=== PATIENT | female | born 2000 ===

== ENCOUNTER 2021-07-02 23:33 | Inpatient (IN) | payer MEDICAID ==
[2021-07-03] MEDS ORDERED: Sodium Chloride 0.9% 10 ML Syringe FLUSH PRN ×2 (00:11→00:34)
[2021-07-03] MEDS ORDERED: Sodium Chloride 0.9% 20 ML SDV IV PRN ×2 (00:11→00:34)
[2021-07-03] MEDS ORDERED: Sodium Chloride 0.9% 2.5 ML Syringe FLUSH PRN ×2 (00:11→00:34)
[2021-07-03] MEDS: Lactated Ringers 1,000 ML IV SCH ×2 (00:30→08:21)
[2021-07-03] MEDS ORDERED: Nalbuphine 10 MG/1 ML Vial IVPUSH PRN (00:34)
[2021-07-03] MEDS ORDERED: Lidocaine 1% 50 ML MDV INJECT PRN (00:34)
[2021-07-03] MEDS ORDERED: Butorphanol 1 MG/ML SDV IVPUSH PRN (00:34)
[2021-07-03] MEDS ORDERED: Carboprost Tromethamine 250 MCG/1 ML Amp IM PRN (00:34)
[2021-07-03] MEDS ORDERED: Water For Irrigation,Sterile 1,000 ML Container IRR PRN (00:34)
[2021-07-03] MEDS ORDERED: Misoprostol 200 MCG Tab PO PRN (00:34)
[2021-07-03] MEDS ORDERED: Tranexamic Acid 1,000 MG in Sodium Chloride 0.9% 100 ML IV PRN (00:34)
[2021-07-03] MEDS ORDERED: Methylergonovine 0.2 MG/1 ML Amp IM PRN (00:34)
[2021-07-03] MEDS ORDERED: Oxytocin/0.9 % Sodium Chloride 30 UNIT/500 ML BAG IV SCH (00:45)
[2021-07-03 01:03] LABS: BLOOD UREA NITROGEN,BUN 5 mg/dL (7.0-18.0); CHLORIDE,CL 103 mmol/L (98-107); GLUCOSE RANDOM 92 mg/dL (74-106); POTASSIUM,K 4.4 mmol/L (3.5-5.1); SODIUM,NA 137 mmol/L (136-145)
[2021-07-03] MEDS ORDERED: Ropivacaine HCl/PF 100 ML ONE (01:52)
[2021-07-03] MEDS ORDERED: ePHEDrine 50 MG/ML SDV IVPUSH PRN (02:46)
--- NOTE | 2021-07-03 02:48 | PCM.PREANE ---
Preanesthetic Assessment - Procedure Proposed Procedure: Labor Epidural - Anesthesia/Transfusion/Family Hx Anesthesia History: No Prior Anesthesia Family History of Anesthesia Reaction: No Transfusion History: No Prior Transfusion(s) Intubation History: Unknown - Review of Systems General: No Symptoms Pulmonary: Other (Asthma) Cardiovascular: No Symptoms Gastrointestinal: Other (GERD) Neurological: No Symptoms Other: Reports: None - Physical Assessment NPO Status Date: 07/03/21 NPO Status Time: 01:30 (Not NPO) Height: 1.59 m Weight: 80.014 kg ASA Class: 2 Mental Status: Alert & Oriented x3 Airway Class: Mallampati = 2 Dentition: Reports: Normal Dentition Thyro-Mental Finger Breadths: 3 Mouth Opening Finger Breadths: 3 ROM/Head Extension: Full Lungs: Clear to Auscultation, Normal Respiratory Effort Cardiovascular: Regular Rate, Regular Rhythm - Lab Values: Laboratory Last Values WBC 16.17 K/uL (4.0-11.0) H 07/03/21 00:28 RBC 4.30 M/uL (4.30-5.90) 07/03/21 00:28 Hgb 12.1 g/dL (12.0-16.0) 07/03/21 00:28 Hct 36.4 % (36.0-46.0) 07/03/21 00:28 MCV 84.7 fL (80.0-98.0) 07/03/21 00:28 MCH 28.1 pg (27.0-32.0) 07/03/21 00:28 MCHC 33.2 g/dL (31.0-37.0) 07/03/21 00:28 RDW Std Deviation 40.9 fl (28.0-62.0) 07/03/21 00:28 RDW Coeff of Jose 14 % (11.0-15.0) 07/03/21 00:28 Plt Count 320 K/uL (150-400) 07/03/21 00:28 MPV 9.70 fL (7.40-12.00) 07/03/21 00:28 Sodium 137 mmol/L (136-145) 07/03/21 00:24 Potassium 4.4 mmol/L (3.5-5.1) 07/03/21 00:24 Chloride 103 mmol/L (98-107) 07/03/21 00:24 Carbon Dioxide 20.0 mmol/L (21.0-32.0) L 07/03/21 00:24 BUN 5 mg/dL (7.0-18.0) L 07/03/21 00:24 Creatinine 0.6 mg/dL (0.6-1.0) 07/03/21 00:24 Est Cr Clr Drug Dosing 120.00 mL/min 07/03/21 00:24 Estimated GFR (MDRD) > 60.0 ml/min 07/03/21 00:24 Glucose 92 mg/dL (74-106) 07/03/21 00:24 Uric Acid 3.9 mg/dL (2.6-7.2) 07/03/21 00:24 Calcium 8.9 mg/dL (8.5-10.1) 07/03/21 00:24 Total Bilirubin 0.2 mg/dL (0.2-1.0) 07/03/21 00:24 AST 13 IU/L (15-37) L 07/03/21 00:24 ALT 22 IU/L (14-63) 07/03/21 00:24 Alkaline Phosphatase 149 U/L (46-116) H 07/03/21 00:24 Total Protein 6.8 g/dL (6.4-8.2) 07/03/21 00:24 Albumin 2.9 g/dL (3.4-5.0) L 07/03/21 00:24 Globulin 3.9 g/dL (2.6-4.0) 07/03/21 00:24 Albumin/Globulin Ratio 0.7 (0.9-1.6) L 07/03/21 00:24 Urine Color YELLOW 07/03/21 00:15 Urine Appearance HAZY 07/03/21 00:15 Urine pH 7.0 (5.0-8.0) 07/03/21 00:15 Ur Specific [place] <= 1.005 (1.001-1.035) 07/03/21 00:15 Urine Protein NEGATIVE mg/dL (NEGATIVE) 07/03/21 00:15 Urine Glucose (UA) NEGATIVE mg/dL (NEGATIVE) 07/03/21 00:15 Urine Ketones NEGATIVE mg/dL (NEGATIVE) 07/03/21 00:15 Urine Occult Blood LARGE (NEGATIVE) H 07/03/21 00:15 Urine Nitrite NEGATIVE (NEGATIVE) 07/03/21 00:15 Urine Bilirubin NEGATIVE (NEGATIVE) 07/03/21 00:15 Urine Urobilinogen 0.2 EU/dL (<2.0) 07/03/21 00:15 Ur Leukocyte Esterase TRACE (NEGATIVE) H 07/03/21 00:15 Urine RBC 1-4 (0-2/HPF) 07/03/21 00:15 Urine WBC 0-3 (0-5/HPF) 07/03/21 00:15 Ur Epithelial Cells OCCASIONAL (NONE-FEW) 07/03/21 00:15 Urine Bacteria FEW (NEGATIVE) 07/03/21 00:15 Membrane Rupture POSITIVE 07/02/21 00:00 SARS-CoV-2 RNA (AYLA) NEGATIVE (NEGATIVE) 07/03/21 00:25 Blood Type O POSITIVE 07/03/21 00:24 Antibody Screen NEGATIVE 07/03/21 00:24 - Allergies Allergies/Adverse Reactions: Allergies Allergy/AdvReac Type Severity Reaction Status Date / Time diphenhydramine Allergy Other Verified 07/02/21 23:55 [From Benadryl] Latex, Natural Rubber Allergy Rash Verified 07/02/21 23:55 nitrofurantoin Allergy Airway Verified 07/02/21 23:55 [From Macrobid] Tightness - Blood Blood Available: Yes Product(s) Available: PRBC (Type and screen) - Anesthesia Plan Pre-Op Medication Ordered: None - Acknowledgements Anesthesia Type Planned: Epidural Pt an Appropriate Candidate for the Planned Anesthesia: Yes Alternatives and Risks of Anesthesia Discussed w Pt/Guardian: Yes Pt/Guardian Understands and Agrees with Anesthesia Plan: Yes PreAnesthesia Questionnaire Respiratory History: Reports: Asthma - HOME MEDS Home Medications: Home Meds Albuterol [Proventil HFA] 2 puff INH Q4H PRN 07/07/20 [History] - CURRENT (IN HOUSE) MEDS Current Meds: Current Medications Butorphanol Tartrate (Butorphanol 1 Mg/Ml Sdv) 1 mg IVPUSH Q1H PRN PRN Reason: Pain (severe 7-10) Last Admin: 07/03/21 00:50 Dose: 1 mg Documented by: Carboprost Tromethamine (Carboprost Tromethamine 250 Mcg/1 Ml Amp) 250 mcg IM ASDIRECTED PRN PRN Reason: Post Hemorrhage Lactated Ringer's (Ringers, Lactated) 1,000 mls @ 150 mls/hr IV ASDIRECTED [facility] Last Admin: 07/03/21 00:30 Dose: 999 mls/hr Documented by: Oxytocin/Sodium Chloride (Oxytocin 30 Unit In Ns 0.9% 500 Ml Premix) 30 unit in 500 mls @ 500 mls/hr IV TITRATE [facility] Tranexamic Acid 1,000 mg/ (Sodium Chloride) 110 mls @ 660 mls/hr IV ONETIME PRN PRN Reason: Bleeding Lidocaine HCl (Lidocaine 1% 50 Ml Mdv) 50 ml INJECT ONETIME PRN PRN Reason: Laceration repair Methylergonovine Maleate (Methylergonovine 0.2 Mg/1 Ml Amp) 0.2 mg IM ASDIRECTED PRN PRN Reason: Post Hemorrhage Misoprostol (Misoprostol 200 Mcg Tab) 200 mcg PO ONETIME PRN PRN Reason: Post Hemorrhage Nalbuphine HCl (Nalbuphine 10 Mg/1 Ml Vial) 10 mg IVPUSH Q1H PRN PRN Reason: Pain (severe 7-10) Sodium Chloride (Sodium Chloride 0.9% 10 Ml Syringe) 10 ml FLUSH ASDIRECTED PRN PRN Reason: Keep Vein Open Sodium Chloride (Sodium Chloride 0.9% 2.5 Ml Syringe) 2.5 ml FLUSH ASDIRECTED PRN PRN Reason: Keep Vein Open Sodium Chloride (Sodium Chloride 0.9% 20 Ml Sdv) 10 ml IV ASDIRECTED PRN PRN Reason: IV Use Sodium Chloride (Sodium Chloride 0.9% 10 Ml Syringe) 10 ml FLUSH ASDIRECTED PRN PRN Reason: Keep Vein Open Sodium Chloride (Sodium Chloride 0.9% 2.5 Ml Syringe) 2.5 ml FLUSH ASDIRECTED PRN PRN Reason: Keep Vein Open Sodium Chloride (Sodium Chloride 0.9% 20 Ml Sdv) 10 ml IV ASDIRECTED PRN PRN Reason: IV Use Sterile Water (Water For Irrigation,Sterile 1,000 Ml Container) 1,000 ml IRR ASDIRECTED PRN PRN Reason: delivery Discontinued Medications Ropivacaine (Naropin 0.2%) Confirm Administered Dose 100 mls @ as directed .ROUTE .[facility] Stop: 07/03/21 01:53
--- NOTE | 2021-07-03 02:53 | PCM.POSTAN ---
POST ANESTHESIA ASSESSMENT - MENTAL STATUS Mental Status: Alert, Oriented - RESPIRATORY Respiratory Status: Respiratory Rate WNL, Airway Patent, O2 Saturation Stable - CARDIOVASCULAR CV Status: Pulse Rate WNL, Blood Pressure Stable - GASTROINTESTINAL GI Status: No Symptoms - POST OP HYDRATION Hydration Status: Adequate & Stable - OBSERVATIONS Free Text/Narrative:: pt rates pain 2-3/10 and block at T6
--- NOTE | 2021-07-03 02:53 | PCM.SN.2 ---
- Pre-Procedure Checklist Attending Provider Aware: Yes Chart Reviewed: Yes Consent Signed: Yes Labs Reviewed: Yes VS/FHR Reviewed: Yes Patient Identification Confirmation Method: Reports: Chart Visual, Verbal Patient Pt an Appropriate Candidate for the Planned Anesthesia: Yes Alternatives and Risks of Anesthesia Discussed w Pt/Guardian: Yes - Procedure Procedure Start Date: 07/03/21 Procedure Start Time: 01:[address]: Reports: Blood Pressure, Heart Rate, SPO2 Functional IV: Yes Bolus Infused (fluid type and amount): 1000 ml LR Safety Measures: Reports: Patient Identified, Procedure Verified, Site Verified, Procedure Time Out Patient Position: Reports: Sitting Prep: Reports: Betadine x3 Local Anesthetic: Reports: Intradermal Wheal w Lidocaine 1% (3 ml) Regional Placement Level: Reports: L3-4 Needle: Reports: 17 g Touhy Approach: Reports: Midline Technique: Reports: SELINA Glass Syringe SELINA Needle Depth (cm): 7 cm Parasthesia: Reports: None Fluid Obtained: Reports: None Catheter Depth at Skin (cm): 15 cm Test Dose Time: 01:48 Test Dose Medication: Reports: Lidocaine 1.5% w Epinephrine 1:200,000 (5 ml) Test Dose Response: Reports: Negative Loading Dose Time: 01:57 (7 ml followed by 6 ml 15 min later) Loading Dose Medication: Ropivacaine 0.2% Loading Dose Patient Position: Supine with left tilt on second bolus Continuous Infusion Start Time: 01:58 Continuous Infusion Medication: Ropivacaine 0.2% Continuous Infusion Rate: 12 Continuous Infusion PCS Bolus Option: 4 Continuous Infusion Lockout Dose (cc/hr): 15 (min lockout) Patient Position Post Placement: Reports: Supine, Supline/KIMBERLY Post-procedure Pain Level: See post note Level Achieved: See post note VS and FHR Monitored in Unit Post Placement: Yes Procedure End Date: 07/03/21 Procedure End Time: 02:30 Procedure Comment: Sterile Technique maintained throughout.
[2021-07-03] MEDS ORDERED: Ropivacaine HCl/PF 200 MG in Premix Bag 1 BAG EPIDUR SCH (03:00)
--- NOTE | 2021-07-03 03:07 | PCM.SN.2 ---
- Free Text/Narrative Note: Patient complains of mild left him pain. Cont rate increased to 14 and bolus increased to 6.
[2021-07-03] MEDS: Albuterol 8 GM Inhaler INH PRN ×3 (08:33→22:27)
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
[2021-07-03] MEDS ORDERED: Acetaminophen 500 MG Tab PO PRN ×2 (09:47)
[2021-07-03] MEDS ORDERED: oxyCODONE 5 MG Tab PO PRN (09:47)
[2021-07-03] MEDS ORDERED: Ibuprofen 400 MG Tab PO PRN (09:47)
[2021-07-03] MEDS ORDERED: Bisacodyl 10 MG Supp RECTAL PRN (09:47)
[2021-07-03] MEDS ORDERED: Lanolin 100% Cream 7 GM Tube TOP PRN (09:47)
[2021-07-03] MEDS ORDERED: Witch Hazel Medicated Pads 40/Jar TOP PRN (09:47)
[2021-07-03] MEDS ORDERED: Benzocaine/Menthol 20%-0.5% Spray 78 GM Cannister TOP PRN (09:47)
[2021-07-03] MEDS ORDERED: Docusate Sodium 100 MG Cap PO PRN (09:47)
[2021-07-03] MEDS ORDERED: Oxytocin 10 Units/1 ML SDV IM ONE (11:20)
[2021-07-03] MEDS: Ibuprofen 800 MG Tab PO PRN ×2 (13:30→20:41)
--- NOTE | 2021-07-03 15:24 | OR ---
SURGEON: Johnny Chambers MD DATE OF PROCEDURE: 07/03/2021 Delivery Note Ms. Rosales is a 20-year-old patient, primigravida. She had her care by Dr. Aguilar in [place], [place]. However, she started having labor, and she had rupture of the membrane which is confirmed. She was closer at this time to our facility, so she came here. At the time of the admission, she was 4 cm, complete, vertex, and with spontaneous rupture of membrane is confirmed and contraction every 3 to 4 minutes. The patient admitted to the hospital. We will obtain her record from [facility]. Her care was unremarkable and the patient was supposed to be scheduled for induction next Sunday. However, the patient continued to progress. She had epidural anesthesia for labor analgesia and she progressed like primigravida and she became complete-complete around 10 o'clock in the morning of July 03, and then after pushing for an hour and 25 minutes, she was able to accomplish normal spontaneous vaginal delivery of a female fetus, cried immediately. score was 8 and 9. The placenta delivered spontaneous, complete, and intact. There was no perineal, labial, or vaginal laceration. Estimated blood loss is 250 to 300 mL. heart rate was category 1 through the entire process of labor. There was no complication in the labor and delivery process of this patient. ROSE / OPHELIA /[id number]
[2021-07-04] MEDS: Ibuprofen 800 MG Tab PO PRN ×2 (02:35→13:50)
[2021-07-04] MEDS: Albuterol 8 GM Inhaler INH PRN (11:12)
--- NOTE | 2021-07-04 13:32 | PCM.DCSUM1 ---
Discharge Summary - Hospital Course Diagnosis: Stroke: No - Discharge Data Discharge Date: 07/04/21 Discharge Disposition: Home, Self-Care 01 Condition: Good - Referral to Home Health Primary Care Physician: PCP None - Patient Instructions Diet: Usual Diet as Tolerated Activity: As Tolerated Driving: Do Not Drive Showering/Bathing: May Shower - Discharge Plan Home Medications: Home Meds Albuterol [Proventil HFA] 2 puff INH Q4H PRN 07/07/20 [History] Patient Handouts: Baby Blues, Breast Pumping Tips, [id number], Care After Vaginal Delivery Referrals: [facility] [Ordering Only Provider] - Johnny Chambers MD [Physician] - 08/15/21 10:45 am (Please arrive 15 minutes early and have ID and insurance cards. Masks are required.) - Discharge Summary/Plan Comment DC Time >30 min.: Yes Total # of Minutes for Discharge Time: 30 - General Info Date of Service: 07/04/21 Functional Status: Reports: Pain Controlled - Review of Systems General: Reports: No Symptoms HEENT: Reports: No Symptoms Pulmonary: Reports: No Symptoms Cardiovascular: Reports: No Symptoms Gastrointestinal: Reports: No Symptoms Genitourinary: Reports: No Symptoms Musculoskeletal: Reports: No Symptoms Skin: Reports: No Symptoms Neurological: Reports: No Symptoms Psychiatric: Reports: No Symptoms - Patient Data Vitals - Most Recent: Last Vital Signs Temp 36.0 C L 07/04/21 08:18 Pulse 85 07/04/21 08:18 Resp 17 07/04/21 08:18 BP 100/65 07/04/21 08:18 Pulse Ox 97 07/04/21 08:18 Weight - Most Recent: 80.014 kg Lab Results - Last 24 hrs: Laboratory Results - last 24 hr 07/04/21 Range/Units 06:04 Hgb 11.1 L (12.0-16.0) g/dL Hct 33.7 L (36.0-46.0) % Med Orders - Current: Current Medications Acetaminophen (Acetaminophen 500 Mg Tab) 500 mg PO Q4H PRN PRN Reason: Pain (mild 1-3) Acetaminophen (Acetaminophen 500 Mg Tab) 1,000 mg PO Q4H PRN PRN Reason: Pain (mild 1-3) Albuterol (Albuterol 8 Gm Inhaler) 0 gm INH Q4H PRN PRN Reason: Chest Pain Last Admin: 07/04/21 11:12 Dose: 8 gm Documented by: Benzocaine/Menthol (Benzocaine/Menthol 20%-0.5% [place] 78 Gm Cannister) 78 gm TOP ASDIRECTED PRN PRN Reason: Perineal Comfort Measure Last Admin: 07/03/21 13:29 Dose: 78 gm Documented by: Bisacodyl (Bisacodyl 10 Mg Supp) 10 mg RECTAL ONETIME PRN PRN Reason: Constipation Butorphanol Tartrate (Butorphanol 1 Mg/Ml Sdv) 1 mg IVPUSH Q1H PRN PRN Reason: Pain (severe 7-10) Last Admin: 07/03/21 00:50 Dose: 1 mg Documented by: Carboprost Tromethamine (Carboprost Tromethamine 250 Mcg/1 Ml Amp) 250 mcg IM ASDIRECTED PRN PRN Reason: Post Hemorrhage Docusate Sodium (Docusate Sodium 100 Mg Cap) 100 mg PO Q12H PRN PRN Reason: Constipation Emollient Ointment (Lanolin 100% Cream 7 Gm Tube) 0 gm TOP ASDIRECTED PRN PRN Reason: Sore Nipples Last Admin: 07/03/21 13:30 Dose: 7 gm Documented by: Ephedrine Sulfate (Ephedrine 50 Mg/Ml Sdv) 10 mg IVPUSH Q1M PRN PRN Reason: Hypotension Lactated Ringer's (Ringers, Lactated) 1,000 mls @ 150 mls/hr IV ASDIRECTED [facility] Last Admin: 07/03/21 08:21 Dose: 150 mls/hr Documented by: Oxytocin/Sodium Chloride (Oxytocin 30 Unit In Ns 0.9% 500 Ml Premix) 30 unit in 500 mls @ 500 mls/hr IV TITRATE [facility] Last Admin: 07/03/21 11:41 Dose: 500 mls/hr Documented by: Tranexamic Acid 1,000 mg/ (Sodium Chloride) 110 mls @ 660 mls/hr IV ONETIME PRN PRN Reason: Bleeding Ropivacaine 200 mg/ Premix 100 mls @ 0 mls/hr EPIDUR ASDIRECTED [facility] Ibuprofen (Ibuprofen 400 Mg Tab) 400 mg PO Q4H PRN PRN Reason: Pain (mild 1-3) Ibuprofen (Ibuprofen 800 Mg Tab) 800 mg PO Q6H PRN PRN Reason: Cramping Last Admin: 07/04/21 02:35 Dose: 800 mg Documented by: Lidocaine HCl (Lidocaine 1% 50 Ml Mdv) 50 ml INJECT ONETIME PRN PRN Reason: Laceration repair Methylergonovine Maleate (Methylergonovine 0.2 Mg/1 Ml Amp) 0.2 mg IM ASDIRECTED PRN PRN Reason: Post Hemorrhage Miscellaneous Medication (Phenylephrine Hcl In 0.9% Nacl 1 Mg/10 Ml Syringe) 0.1 mg IVPUSH Q1M PRN PRN Reason: Hypotension Misoprostol (Misoprostol 200 Mcg Tab) 200 mcg PO ONETIME PRN PRN Reason: Post Hemorrhage Nalbuphine HCl (Nalbuphine 10 Mg/1 Ml Vial) 10 mg IVPUSH Q1H PRN PRN Reason: Pain (severe 7-10) Oxycodone HCl (Oxycodone 5 Mg Tab) 5 mg PO Q2H PRN PRN Reason: Pain (severe 7-10) Sodium Chloride (Sodium Chloride 0.9% 10 Ml Syringe) 10 ml FLUSH ASDIRECTED PRN PRN Reason: Keep Vein Open Sodium Chloride (Sodium Chloride 0.9% 2.5 Ml Syringe) 2.5 ml FLUSH ASDIRECTED PRN PRN Reason: Keep Vein Open Sodium Chloride (Sodium Chloride 0.9% 20 Ml Sdv) 10 ml IV ASDIRECTED PRN PRN Reason: IV Use Sodium Chloride (Sodium Chloride 0.9% 10 Ml Syringe) 10 ml FLUSH ASDIRECTED PRN PRN Reason: Keep Vein Open Sodium Chloride (Sodium Chloride 0.9% 2.5 Ml Syringe) 2.5 ml FLUSH ASDIRECTED PRN PRN Reason: Keep Vein Open Sodium Chloride (Sodium Chloride 0.9% 20 Ml Sdv) 10 ml IV ASDIRECTED PRN PRN Reason: IV Use Sterile Water (Water For Irrigation,Sterile 1,000 Ml Container) 1,000 ml IRR ASDIRECTED PRN PRN Reason: delivery Witch Luciana (Witch Luciana Medicated Pads 40/Jar) 1 pad TOP ASDIRECTED PRN PRN Reason: comfort care Last Admin: 07/03/21 13:29 Dose: 1 pad Documented by: Discontinued Medications Ropivacaine (Naropin 0.2%) Confirm Administered Dose 100 mls @ as directed .ROUTE .STK-MED ONE Stop: 07/03/21 01:53 Last Admin: 07/03/21 07:59 Dose: 14 mls/hr Documented by: Oxytocin (Oxytocin 10 Units/1 Ml Sdv) 10 unit IM ONETIME ONE Stop: 07/03/21 11:21 Last Admin: 07/03/21 11:25 Dose: 10 unit Documented by: - Exam General: Reports: Alert, Oriented HEENT: Reports: Pupils Equal, Pupils Reactive, EOMI, Mucous Membr. Moist/[place] Neck: Reports: Supple Lungs: Reports: Clear to Auscultation, Normal Respiratory Effort Cardiovascular: Reports: Regular Rate, Regular Rhythm GI/Abdominal Exam: Normal Bowel Sounds, Soft, Non-Tender, No Organomegaly, No Distention, No Abnormal Bruit, No Mass, Pelvis Stable (Female) Exam: Normal External Exam, Normal Speculum Exam, Normal Bimanual Exam Rectal (Female) Exam: Normal Exam, Normal Rectal Tone Back Exam: Reports: Normal Inspection, Full Range of Motion Extremities: Normal Inspection, Normal Range of Motion, Non-Tender, No Pedal Edema, Normal Capillary Refill Skin: Reports: Warm, Dry, Intact Wound/Incisions: Reports: Healing Well Neurological: Reports: No New Focal Deficit Psy/Mental Status: Reports: Alert, Normal Affect, Normal Mood
--- NOTE | 2021-07-05 09:43 | PCM48HPAN ---
Post Anesthesia Note - EVALUATION WITHIN 48HRS OF ANESTHETIC Vital Signs in Normal Range: Yes Patient Participated in Evaluation: Yes Respiratory Function Stable: Yes Airway Patent: Yes Cardiovascular Function Stable: Yes Hydration Status Stable: Yes Pain Control Satisfactory: Yes Nausea and Vomiting Control Satisfactory: Yes Mental Status Recovered: Yes Vital Signs: Last Vital Signs Temp 96.8 F L 07/04/21 08:18 Pulse 85 07/04/21 08:18 Resp 17 07/04/21 08:18 BP 100/65 07/04/21 08:18 Pulse Ox 97 07/04/21 08:18
== END 2021-07-04 14:30 | disposition home or self-care (01) | DRG 807 ==
LOC: MW.OBCHECK 23:33 → MW.OB 23:42 → MW.OBCHECK 07-03 00:33 → MW.OB 07-03 00:34 → OBSVTOIN 07-03 09:48 → MW.OB 07-03 13:50
PROVIDERS: ADMIT Obstetrics & Gynecology; ATTEND Obstetrics & Gynecology
PROC: 10E0XZZ Delivery of Products of Conception, External Approach (ICD-10-PCS; principal; 2021-07-03)
PROC: 3E0R3BZ Introduction of Anesthetic Agent into Spinal Canal, Percutaneous Approach (ICD-10-PCS; 2021-07-03)
PROC: 00HU33Z Insertion of Infusion Device into Spinal Canal, Percutaneous Approach (ICD-10-PCS; 2021-07-03)
DX: O99.52 Diseases of the respiratory system complicating childbirth (principal); Z37.0 Single live birth; J45.909 Unspecified asthma, uncomplicated; Z20.822 Contact with and (suspected) exposure to COVID-19; Z91.040 Latex allergy status; Z88.8 Allergy status to other drugs, medicaments and biological substances; Z3A.39 39 weeks gestation of pregnancy
CPT/HCPCS: 01967; 36415; 51702; 59025; 59409; 80053; 81001; 84112; 84550; 85014; 85018; 85027; 86592; 86850; 86900; 86901; A9270-GY; J0595; J2590; J2795; J7120; U0002